=== PATIENT | male | born 1980 | race Caucasian/White ===

== ENCOUNTER 2017-01-06 03:57 | Emergency (ER) | payer OTHER ==
[~2017-01-06] VITALS: Ht 177.8 cm; Wt 97.5 kg
--- NOTE | 2017-01-06 04:43 | ED HAND/WRIST INJURY COMPLAINT ---
History of Present Illness General Chief Complaint: Hand or Wrist Injury Stated Complaint: BIBA FOR L HAND PAIN Source: patient, EMS Exam Limitations: no limitations Vital Signs & Intake/Output Vital Signs & Intake/Output Vital Signs Date Time Temp Pulse Resp B/P B/P Pulse O2 O2 Flow FiO2 Mean Ox Delivery Rate 01/06 0358 97.4 83 18 146/90 97 Room Air Allergies Coded Allergies: No Known Allergies (01/06/17) Reconcile Medications Cephalexin (Keflex) 500 MG CAPSULE 1 CAP PO TID cellulitis Ibuprofen 600 MG TABLET 1 TAB PO Q6PRN PRN pain with food Oxycodone HCl/Acetaminophen (Percocet 5-325 MG Tablet) 5 MG-325 MG TABLET 1-2 TAB PO 4 TIMES/DAY PRN severe pain Triage Note: PT BIBA FOR LEFT HAND SWELLING. PER PT HE HAD CUT HIS MIDDLE FINGER ON L HAND ON A PEICE OF GLASS. PT STATES HE WOKE UP AND "DREAMING ABOUT HIS HAND PAIN". PT STATES PAIN IS 10/10 AND CANNOT MOVE HIS HAND. Triage Nurses Notes Reviewed? yes Occurred: last week Duration: day(s):, constant, continues in ED, getting worse Timing: recent history Injury Environment: home Severity: severe Pain/Injury Location: Left: Hand, 3rd finger. Context: laceration Method of Injury: laceration Modifying Factors: Improves With: immobilization. Worsens With: movement. Associated Symptoms: swelling, GCS 15 since, stiffness HPI: 6 days prior to admission patient cut his left middle finger with glass that is intermittently opened and bled. Prior to admission he woke with swelling to the middle finger with increased pain unable to make a fist. He denies fever chills nausea vomiting diarrhea abdominal pain chest pain shortness breath headache dysuria rash. He is RHD. Past History Travel History Traveled to [place] past 21 day No Medical History Any Pertinent Medical History? see below for history Psychiatric: ADHD Surgical History Surgical History: non-contributory Psychosocial History What is your primary language Amharic Tobacco Use: Current Not Daily Family History Hx Contributory? No Review of Systems Review of Systems Constitutional: Reports: no symptoms. EENTM: Reports: no symptoms. Respiratory: Reports: no symptoms. Cardiovascular: Reports: no symptoms. GI: Reports: no symptoms. Genitourinary: Reports: no symptoms. Musculoskeletal: Reports: see HPI, joint pain, joint swelling. Skin: Reports: no symptoms. Neurological/Psychological: Reports: no symptoms. Hematologic/Endocrine: Reports: no symptoms. Immunologic/Allergic: Reports: no symptoms. All Other Systems: Reviewed and Negative Physical Exam Physical Exam General Appearance: well developed/nourished, alert, awake, anxious, mild distress, obese Head: atraumatic, normal appearance Eyes: Bilateral: normal appearance, PERRL, EOMI. Ears, Nose, Throat: normal pharynx, normal ENT inspection, hearing grossly normal Neck: normal inspection, supple, full range of motion, no midline tenderness Cardiovascular/Respiratory: normal breath sounds, normal peripheral pulses, regular rate/rhythm, no respiratory distress Back: normal inspection, normal range of motion, no vertebral tenderness Shoulder Left: normal range of motion, normal inspection Shoulder Right: normal range of motion, normal inspection Elbow Left: normal range of motion, normal inspection Elbow Right: normal range of motion, normal inspection Forearm Left: normal range of motion, normal inspection Forearm Right: normal range of motion, normal inspection Wrist Left: normal range of motion, normal inspection Wrist Right: normal range of motion, normal inspection Hand Left: limited range of motion, swelling, tender, 3rd finger, finger held in flexion with tenderness over the volar surface Hand Right: normal inspection, normal range of motion Reflexes: 2+: bicep (R), bicep (L). Neurologic/Tendon: normal sensation, normal motor functions, responds to pain, no pulse deficit Skin: intact, normal color, warm/dry Lymphatic: no anterior cervical vivien Progress Differential Diagnosis: abscess, cellulitis, tenosynovitis Plan of Care: Orders Procedure Date/time Status HIGH SENSITIVITY CRP 01/07 440 Complete COMPREHENSIVE METABOLIC PANEL 01/07 440 Complete CBC WITHOUT DIFFERENTIAL 01/07 440 Complete Current Medications Sig/Domenica Start time Last Medication Dose Stop Time Status Admin Oxycodone/ 1 TAB ONCE ONE 01/06 0600 UNVr Acetaminophen 01/06 0601 (Percocet) Cefazolin Sodium 2 GM ONCE ONE 01/06 445 UNVr 01/06 (Kefzol) 01/06 0514 0515 N/A 1 UNIT (No Carrier) Ketorolac 30 MG ONCE ONE 01/06 445 UNVr 01/06 Tromethamine 01/06 446 0515 (Toradol) Laboratory Tests 01/06/17 0509: Anion Gap 15, Estimated GFR > 60, BUN/Creatinine Ratio 15.6, Glucose 92, Calcium 9.0, Total Bilirubin 0.8, AST 36, ALT 51, Alkaline Phosphatase 56, C-React Prot High Sens 1.8, Total Protein 7.7, Albumin 4.9, Globulin 2.8, Albumin/Globulin Ratio 1.8, CBC w Diff NO MAN DIFF REQ, RBC 4.91, MCV 86.4, MCH 29.8, RDW 13.9, MPV 7.4, Gran % 64.7, Lymphocytes % 24.1, Monocytes % 7.9, Eosinophils % 3.0, Basophils % 0.3, Absolute Granulocytes 5.0, Absolute Lymphocytes 1.9, Absolute Monocytes 0.6, Absolute Eosinophils 0.2, Absolute Basophils 0, PUBS MCHC 34.5 Diagnostic Imaging: Viewed by Me: Radiology Read. Discussed w/RAD: Radiology Read. Radiology Impression: Soft tissue swelling to the third digit without fracture or dislocation. No radiopaque foreign bodies identified. Departure Departure Time of Disposition: 551 Disposition: HOME OR SELF CARE Condition: Stable Clinical Impression Primary Impression: Cellulitis of finger of left hand Departure Forms: Customer Survey General Discharge Information Prescriptions: Current Visit Scripts Cephalexin (Keflex) 1 CAP PO TID #30 CAP Ibuprofen 1 TAB PO Q6PRN PRN pain #50 TAB with food Oxycodone HCl/Acetaminophen (Percocet 5-325 MG Tablet) 1-2 TAB PO 4 TIMES/DAY PRN severe pain #20 TAB Procedures Splinting Location: LMF Manual Alignment Performed: No Pre-Made Type: metal Splint: finger Splint Applied By: splint applied by other Pre-Proc Neuro Vasc Exam: normal Post-Proc Neuro Vasc Exam: normal
[2017-01-06 05:16] LABS: ABSOLUTE BASOPHIL COUNT 0 /CUMM (0.0-0.2); ABSOLUTE EOSINOPHIL COUNT 0.2 /CUMM (0.0-0.7); ABSOLUTE LYMPH COUNT 1.9 /CUMM (1.2-3.4); ABSOLUTE MONOCYTE COUNT 0.6 /CUMM (0.10-0.60); BASOPHIL % 0.3 % (0.0-2.0); GRANULOCYTE % 64.7 % (42.2-75.2); HEMATOCRIT 42.4 % (42-52); MEAN CORPUSCULAR HGB 29.8 PG (27.0-31.0); MEAN CORPUSCULAR HGB CONC 34.5 G/DL (33.0-37.0); MEAN CORPUSCULAR VOLUME 86.4 FL (80.0-94.0); MEAN PLATELET VOLUME 7.4 FL (7.4-10.4); PLATELET COUNT 220 /CUMM (130-400); RBC DISTRIBUTION WIDTH 13.9 % (11.5-14.5); RED BLOOD CELL CT 4.91 /CUMM (4.70-6.10); WHITE BLOOD CELL COUNT 7.8 /CUMM (4.8-10.8)
--- NOTE | 2017-01-06 05:38 | RADIOLOGY REPORT ---
EXAMINATION: FINGER 3 VIEWS, LEFT CLINICAL INFORMATION: Left third digit pain and swelling following injury with glass. COMPARISON: None. TECHNIQUE: A PA view of the left hand is provided along with two views of the third digit. FINDINGS: There is soft tissue swelling to the third digit. There are no fractures or dislocations. There are no radiopaque foreign bodies. IMPRESSION: Soft tissue swelling to the third digit without fracture or dislocation. No radiopaque foreign bodies identified.
[2017-01-06] MEDS ORDERED: IBUPROFEN600 M1 PO (05:55)
[2017-01-06] MEDS ORDERED: PERCOCET 5-3251 EACH PO (05:55)
[2017-01-06] MEDS ORDERED: KEFLEX500 M1 PO (05:55)
[2017-01-06 06:11] VITALS: BP 125/82
== END 2017-01-06 06:23 ==
LOC: ERH 03:57
PROVIDERS: Emergency Medicine
DX: L03.012 Cellulitis of left finger (principal)
CPT/HCPCS: 73140-LT; 96374; 96375; J0690; J1885